=== PATIENT | male | born 1960 | race African-American/Black ===

== ENCOUNTER 2018-10-18 10:52 | Outpatient (CLI) | payer BC ==
[2018-10-18] MEDS ORDERED: ISOVUE-370 76%-LOCM 1 ML ONE (12:48)
--- NOTE | 2018-10-18 14:29 | CT ---
8CT ABDOMEN AND PELVIS WITH AND WITHOUT IV CONTRAST: HISTORY: Microscopic hematuria. FINDINGS: Each renal collecting system, ureter, and urinary bladder are decompressed, without stone evident. 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 No filling defects are apparent within the urin tana system on the delayed images. The gallbladder is surgically absent. Tiny cysts of the renal cortex. Calcification at the left matthew al hilum is arterial. Phleboliths are noted within the pelvis. IMPRESSION: 1. No urinary tract abnormalities are demonstrated to explain hematuria. 2. Atherosclerosis. 3. Status post cholecystectomy. POS: [facility]
== END 2018-10-18 10:53 | disposition home or self-care (01) ==
LOC: BICCT 10:52
PROVIDERS: ATTEND Urology
DX: C61 Malignant neoplasm of prostate (principal); E88.2 Lipomatosis, not elsewhere classified; R31.29 Other microscopic hematuria; I70.0 Atherosclerosis of aorta; Z90.49 Acquired absence of other specified parts of digestive tract
CPT/HCPCS: 74178

== ENCOUNTER 2022-05-23 07:10 | Outpatient (CLI) | payer BC | END 2022-05-23 07:11 | disposition home or self-care (01) | LOC: BICULT 07:10 | PROVIDERS: ATTEND Urology | DX: C61 Malignant neoplasm of prostate (principal); E88.2 Lipomatosis, not elsewhere classified; Q62.5 Duplication of ureter; N30.80 Other cystitis without hematuria | CPT/HCPCS: 76770 ==

== ENCOUNTER 2023-02-03 13:08 | Emergency (ER) | payer BC, SELFPAY ==
[~2023-02-03 13:08] MED LIST: Iopamidol 370 76% 100 ML VIAL ONE
[2023-02-03 13:44] LABS: #Eosinphils 0.1 thou/uL (0.0-0.7); #Monocytes 0.5 thou/uL (0.11-0.59); #Neutrophils 4.4 thou/uL (1.40-6.50); %Basophils 0.5 % (0.0-1.0); %Eosinophils 1.4 % (0.0-10.0); %Lymphocytes 24.3 % (21.0-51.0); %Monocytes 7.6 % (0.0-10.0); Hemoglobin 13.4 g/dL (14.0-18.0); Mean Corpuscular HGB CONC 33.2 g/dL (32.0-36.0); Mean Corpuscular Hemoglobin 26.4 pg (27.0-31.0); Mean Corpuscular Volume 79.7 fl (78.0-98.0); Mean Platelet Volume 10.5 fL (7.4-10.4); Platelet Count 205 10x3/uL (130-400); Red Blood Cell (RBC) Count 5.07 mill/uL (4.70-6.10); White Blood Cell (WBC) Count 6.6 10x3/uL (4.8-10.8)
[2023-02-03] MEDS ORDERED: Nitroglycerin 2% Ointment 1 INCH/1 GM Packet ONE (14:07)
[2023-02-03 14:20] LABS: ALT (SGPT) 57 U/L (8-55); AST (SGOT) 45 U/L (5-34); Albumin 3.9 g/dL (3.4-4.8); Alkaline Phosphatase 56 U/L (40-110); Anion Gap 12 mmol/L (10-20); BUN (Urea Nitrogen) 11 mg/dL (8.4-25.7); Bilirubin, Total 0.6 mg/dL (0.2-1.2); Calc. Creatinine Clearance 0 mL/min (70-130); Calcium 8.4 mg/dL (7.8-10.44); Carbon Dioxide 23 mmol/L (23-31); Chloride 106 mmol/L (98-107); Estimated GFR 58; Globulin 3.2 g/dL (2.4-3.5); Glucose 99 mg/dL (80-115); Lipase 42 U/L (8-78); Protein, Total 7.1 g/dL (5.8-8.1); Sodium 137 mmol/L (136-145)
[2023-02-03 14:33] LABS: Anisocytosis SLIGHT = 6-15 cells HPF (0-5); CellaVision Operator ID LAB.MJL; Hypochromia SLIGHT = 6-15 cells HPF (0-5); Microcytosis SLIGHT = 6-15 cells HPF (0-5); Platelet Morphology Comment Platelets Normal; Polychromasia SLIGHT = 2-3 cells HPF (0-2); Target Cells SLIGHT = 2-5 cells HPF (0-1)
[2023-02-03] MEDS ORDERED: Amlodipine 5 MG TAB ONE (15:37)
[2023-02-03 16:20] LABS: Bacteria/HPF None Seen HPF (None Seen); Bilirubin Negative (Negative); Blood, Urine 3+ (Negative); Clarity Clear (Clear); Glucose, Urine (Dipstick) Normal (Negative); Ketone, Urine Negative (Negative); Leukocyte Negative Leu/uL (Negative); Nitrite Negative (Negative); Protein, Urine (Dipstick) 10 mg/dL (Neg-Trace); Specific Gravity, Urine 1.013 (1.002-1.036); Squamous Epithelial None Seen HPF (0-3); WBC/HPF 0-3 HPF (0-3)
== END 2023-02-03 16:23 | disposition home or self-care (01) ==
LOC: ERS 13:08
DX: I10 Essential (primary) hypertension (principal); R11.2 Nausea with vomiting, unspecified; F17.210 Nicotine dependence, cigarettes, uncomplicated
CPT/HCPCS: 36415; 71045; 71275; 74174; 80053; 81003; 81015; 83690; 84484; 85025; 93005; Q9967

== ENCOUNTER 2024-07-22 09:52 | Outpatient (CLI) | payer OTHER | END 2024-07-22 09:53 | disposition home or self-care (01) | LOC: BICCT 09:52 | DX: F17.210 Nicotine dependence, cigarettes, uncomplicated (principal) | CPT/HCPCS: 71271 ==